=== PATIENT | male | born 1980 | race Caucasian/White ===

== ENCOUNTER 2016-09-01 10:25 | Emergency (ER) | payer OTHER ==
[~2016-09-01] VITALS: Ht 175.3 cm; Wt 108.0 kg
[2016-09-01 10:27] VITALS: TEMP 36.9; Ht 175.3 cm; Wt 108.0 kg
--- NOTE | 2016-09-01 10:55 | DIAGNOSTIC IMAGING REPORT ---
RIGHT KNEE 3 VIEWS CLINICAL HISTORY: Right knee pain after slipping on ice. COMPARISON: None FINDINGS: Alignment of the right knee is anatomic. There is no acute fracture. Joint spaces are preserved. There is a possible joint effusion. IMPRESSION: 1. No acute fracture. 2. Possible right knee joint effusion. Electronically signed by: Marshall Perez M.D. 09/01/2016 10:53 AM Dictated Date/Time: 09/01/2016 10:52 AM
--- NOTE | 2016-09-01 10:57 | DIAGNOSTIC IMAGING REPORT ---
RIGHT ANKLE MIN 3 VIEWS ROUTINE CLINICAL HISTORY: Right ankle pain following slipping on ice. COMPARISON: None FINDINGS: There is moderate lateral ankle soft tissue swelling. There is no ankle mortise widening. Note is made of a minimally displaced distal right fibular fracture that extends from the level of the ankle mortise 2.5 cm proximally. Talar dome is intact. There is an age indeterminate tiny avulsion fracture of the medial malleolus. IMPRESSION: 1. Minimally displaced distal right fibular fracture. 2. Tiny age indeterminate avulsion fracture of the medial malleolus. 3. No ankle mortise widening. Electronically signed by: Marshall Perez M.D. 09/01/2016 10:55 AM Dictated Date/Time: 09/01/2016 10:53 AM
[2016-09-01] MEDS ORDERED: KETOROLAC TROMETHAMINE 60 MG/2 ML VIAL IM STA (11:11)
[2016-09-01] MEDS ORDERED: HYDROmorphone INJ 1 MG/ML SYR IM STA (11:11)
[2016-09-01] MEDS ORDERED: ONDANSETRON 4MG OD TAB PO ONE (11:15)
[2016-09-01] MEDS ORDERED: OXYC1TAB3 PO (11:15)
[2016-09-01 12:32] VITALS: BP 140/82; PULSE 92; O2SAT 96
--- NOTE | 2016-09-01 16:17 | EMERGENCY ROOM VISIT NOTE ---
History First contact with patient: 10:36 Chief Complaint: ANKLE PAIN Stated Complaint: TWISTED RT ANKLE, SWELLING UP TO KNEE History of Present Illness The patient is a 36 year old male who presents to the Emergency Room with complaints of right leg pain after he slipped on ice and twisted his leg this morning. The patient also believes that when he fell, he fell onto his knee. He denies any head injury, back pain or other extremity injuries. He rates his discomfort a 9 out of 10. Review of Systems 10 system review was performed and was negative except for pertinent positives and negatives as indicated in history of present illness Past Medical/Surgical History Medical Problems: (1) Migraine (2) Sinusitis Family History FH: [place] (myocardial infarction) FH: cancer Hypertension Stroke Social History Smoking Status: Current Every Day Smoker Alcohol Use: none Drug Use: none Marital Status: in relationship Housing Status: lives with family Occupation Status: employed Current/Historical Medications Scheduled PRN Oxycodone Ir (Roxicodone Ir), 1-2 TAB PO Q4H PRN for Pain Allergies Coded Allergies: No Known Allergies (Verified , 02/27/16) Physical Exam Vital Signs Date Time Temp Pulse Resp B/P Pulse Ox O2 Delivery O2 Flow Rate FiO2 09/01/16 12:32 92 140/82 96 09/01/16 10:27 36.9 114 18 159/114 96 Room Air Physical Exam CONSTITUTIONAL: Healthy and well nourished. Alert and oriented X 3 with positive affect. Patient appears in moderately severe discomfort. HEENT: Normocephalic, atraumatic. Pupils equal, round and reactive. NECK: Full active range of motion without discomfort. MUSCULOSKELETAL: Examination of the right lower extremity does not show any open wounds, deformities or significant ecchymosis. The patient has notable tenderness to palpation over the distal fibula and medial malleolus. Pedal pulses are intact. Positive anterior draw, however this was difficult to test because of patient discomfort. Patient has no significant discomfort through the Achilles tendon. INTEGUMENTARY: No rash or other significant dermatologic conditions noted. NEUROLOGIC: Right foot and toes are sensory intact. Medical Decision & Procedures ER Provider Diagnostic Interpretation: My interpretation of right ankle x-rays shows a comminuted fracture of the distal fibula, along with tiny avulsion of the medial malleolus. I also question mild medial malleolar widening. Radiologist report is as follows: RIGHT ANKLE MIN 3 VIEWS ROUTINE CLINICAL HISTORY: Right ankle pain following slipping on ice. COMPARISON: None FINDINGS: There is moderate lateral ankle soft tissue swelling. There is no ankle mortise widening. Note is made of a minimally displaced distal right fibular fracture that extends from the level of the ankle mortise 2.5 cm proximally. Talar dome is intact. There is an age indeterminate tiny avulsion fracture of the medial malleolus. IMPRESSION: 1. Minimally displaced distal right fibular fracture. 2. Tiny age indeterminate avulsion fracture of the medial malleolus. 3. No ankle mortise widening. Interpretation of right knee x-ray shows a mildly effusion without evidence for any other fractures, including a proximal fibular fracture. Radiologist report is as follows: RIGHT KNEE 3 VIEWS CLINICAL HISTORY: Right knee pain after slipping on ice. COMPARISON: None FINDINGS: Alignment of the right knee is anatomic. There is no acute fracture. Joint spaces are preserved. There is a possible joint effusion. IMPRESSION: 1. No acute fracture. 2. Possible right knee joint effusion. Medications Administered Medications (Trade) Dose Ordered Sig/Piyush Route Start Time Stop Time Status Last Admin Dose Admin Hydromorphone HCl (Dilaudid Inj) 1 mg ONE STAT IM 09/01/16 11:11 09/01/16 11:13 DC 09/01/16 11:24 1 MG Ketorolac Tromethamine (Toradol Inj) 60 mg NOW STAT IM 09/01/16 11:11 09/01/16 11:13 DC 09/01/16 11:24 60 MG Ondansetron HCl (Zofran Odt) 4 mg ONE ONCE PO 09/01/16 11:15 09/01/16 11:16 DC 09/01/16 11:24 4 MG ED Course Patient history and physical exam were performed. Nurse's notes were reviewed. Vital signs were reviewed and were normal. X-rays were ordered by nursing protocol, showing a comminuted distal fibula fracture, and possible acute avulsion fracture of the medial malleolar tip. I also question mild medial mortise widening. When the patient returned from x-ray, he did request something for pain. He was administered Dilaudid 1 mg and Toradol 60 mg IM, along with Zofran 4 mg ODT. A posterior and ankle stirrup Ortho-Glass splint was applied. Neurovascular check after splint placement was normal. The patient was encouraged to ice and elevate the ankle for swelling. Ibuprofen and Tylenol in alternating fashion for baseline pain relief. The patient was provided a prescription for OxyIR as needed for breakthrough pain. No drinking or driving while taking OxyIR. The patient reports that he has been to [facility] in the past. He was instructed to contact her office for further reevaluation and management. The patient voiced understanding of all discharge instructions, was happy with plan of care, and rated his pain a 4 out of 10 on my final evaluation. Medical Decision [place] Drug Monitoring Program Search Results: patient reviewed within database, no issues identified Impression Primary Impression: Fracture of distal fibula Additional Impressions: Fall due to slipping on ice or snow Effusion, right knee Departure Information Prescriptions Oxycodone Ir (Roxicodone Ir) 5 Mg Tab 1-2 TAB PO Q4H Y for Pain, #24 TAB For Initial Treatment Prov: Raffi Vilchis PA 09/01/16 Referrals Franck Paredes M.D.([facility]) (PCP) Patient Instructions My [facility] Problem Qualifiers Primary Impression: Fracture of distal fibula Encounter type: initial encounter Fracture type: closed Fracture morphology : other fracture Laterality: right Qualified Codes: S82.831A - Other fracture of upper and lower end of right fibula, initial encounter for closed fracture Additional Impressions: Fall due to slipping on ice or snow Encounter type: initial encounter Qualified Codes: W00.9XXA - Unspecified fall due to ice and snow, initial encounter
[2016-09-07] MEDS ORDERED: OXYC1TAB3 PO (09:01)
== END 2016-09-01 12:39 | disposition home or self-care (01) ==
LOC: C.EDB 10:26
DX: S82.51XA Displaced fracture of medial malleolus of right tibia, initial encounter for closed fracture (principal); W01.0XXA Fall on same level from slipping, tripping and stumbling without subsequent striking against object, initial encounter; M25.461 Effusion, right knee; F17.200 Nicotine dependence, unspecified, uncomplicated; Z86.19 Personal history of other infectious and parasitic diseases; Z80.9 Family history of malignant neoplasm, unspecified; Z82.49 Family history of ischemic heart disease and other diseases of the circulatory system; Z82.0 Family history of epilepsy and other diseases of the nervous system

== ENCOUNTER 2016-09-04 10:40 | Emergency (ER) | payer OTHER ==
[~2016-09-04] VITALS: Ht 175.3 cm; Wt 107.9 kg
[~2016-09-04 10:40] MED LIST: OXYC1TAB3 PO
[2016-09-04 10:50] VITALS: Ht 175.3 cm; Wt 107.9 kg
[2016-09-04] MEDS ORDERED: KETOROLAC TROMETHAMINE 60 MG/2 ML VIAL IM STA (11:42)
[2016-09-04] MEDS ORDERED: ONDANSETRON 4MG OD TAB PO STA (11:42)
[2016-09-04] MEDS ORDERED: HYDROmorphone INJ 2 MG/ML SYR/VIAL IM STA (11:42)
[2016-09-04] MEDS ORDERED: OXYC1TAB3 PO (12:50)
--- NOTE | 2016-09-04 12:52 | EMERGENCY ROOM VISIT NOTE ---
ED Visit Note First contact with patient: 11:19 CHIEF COMPLAINT: Ongoing right ankle pain after a fracture last week HISTORY OF PRESENT ILLNESS: Patient is a 36-year-old white male who returns to the emergency department for right ankle pain. He was here last week after he slipped and fell, twisting the right ankle, sustaining a distal fibular fracture with mortise widening. Patient was splinted and placed on crutches. He has been using oxycodone 1-2 tablets every 4-5 hours as needed for pain. His last dose was about 3 hours prior to arrival in the emergency department. Patient reports that he tried to get into [facility] with whom he is previously established, and was told first that he could not schedule appointment without a PCP referral, then was also told that he could not schedule an appointment due to an outstanding bill. He did call his [facility] PCP and has an appointment for , the . He states this is the soonest they could get him in. At their advice, he also attempted to call [facility] who also needed a PCP referral. Patient presents complaining of ankle pain. He states that it is not controlled by the oxycodone that he is taking as prescribed. He presently rates his discomfort an 8/10. It is located in the ankle, deep and throbbing in nature. It does not radiate. There was no new injury. He is adamant that he has been on weightbearing with crutches. He denies any numbness or tingling. He denies any problems with the splint. REVIEW OF SYSTEMS: Review of systems as per HPI. All other systems reviewed were negative. At least 6 systems reviewed. PMH: Electronic medical records are reviewed and summarized as above/below. See Problem List. SOCIAL HISTORY: Patient lives at home with his significant other and children. Smoker. PHYSICAL EXAM: Vital Signs: Reviewed Nurses' notes. MENTAL STATUS: Patient is an uncomfortable appearing 36-year-old white male who is awake and alert and in moderate distress due to his ankle pain. HEART: Regular rate and rhythm. LUNGS: Clear to auscultation. EXTREMITIES: Examination of the right lower extremities show an intact short leg Ortho-Glass splint. This was removed. He has expected swelling in the ankle and in the dorsum of the foot with some ecchymosis noted. Skin is otherwise intact. No blistering or breakdown present. The calf is soft and nontender. No erythema or palpable cords. No knee joint effusion. Sensation light touch is intact of the right lower extremity. Distal pulses are easily palpable. He can wiggle and move his toes without difficulty. Capillary refill is less than 2 seconds. es or organs felt. SKIN: No pallor, cyanosis, or eruptions. EMERGENCY DEPARTMENT COURSE: The patient was seen and assessed as above. His prior ED record was reviewed, including radiographs. Splint was removed. He has expected swelling and bruising. His calf is soft and nontender. I do not suspect DVT. He was placed in a short leg Ortho-Glass splint. He was medicated with Toradol and Dilaudid IM. He does not have any new trauma to indicate new radiographs at this time. His ED visit today largely for pain management as he has had difficulty arranging orthopedic follow-up due to his insurance. I did discuss his situation with the field nurse case manager and due to his [facility] insurance, he does require a PCP referral. The patient reported that he felt more comfortable with the splint change, and with the IM medications. He was encouraged to continue all of his instructions as previously outlined, including taking the oxycodone regularly and keep the ankle up and elevated above the level of his heart. He was advised to obtain the soonest PCP appointment to obtain an orthopedic referral. He was given a refill of his oxycodone as he stated that he is nearly out. He does not demonstrate any evidence for compartment syndrome or nerve or vascular compromise. Again, I do not suspect DVT. The patient rated his discomfort a 2/10 at discharge. Problem List Medical Problems: (1) Migraine Status: Resolved (2) Sinusitis Status: Resolved Current/Historical Medications Scheduled PRN Oxycodone Ir (Roxicodone Ir), 1-2 TAB PO Q4H PRN for Pain Allergies Coded Allergies: No Known Allergies (Verified , 02/27/16) Vital Signs Date Time Temp Pulse Resp B/P Pulse Ox O2 Delivery O2 Flow Rate FiO2 09/04/16 12:55 36.7 96 18 147/114 97 09/04/16 10:50 36.7 96 18 147/114 97 Medications Administered Medications (Trade) Dose Ordered Sig/Piyush Route Start Time Stop Time Status Last Admin Dose Admin Hydromorphone HCl (Dilaudid Inj) 2 mg NOW STAT IM 09/04/16 11:42 09/04/16 11:44 DC 09/04/16 11:55 2 MG Ketorolac Tromethamine (Toradol Inj) 60 mg NOW STAT IM 09/04/16 11:42 09/04/16 11:44 DC 09/04/16 11:56 60 MG Ondansetron HCl (Zofran Odt) 4 mg NOW STAT PO 09/04/16 11:42 09/04/16 11:44 DC 09/04/16 11:56 4 MG Departure Information Impression Primary Impression: Fracture of distal fibula Prescriptions Oxycodone Ir (Roxicodone Ir) 5 Mg Tab 1-2 TAB PO Q4H Y for Pain, #30 TAB For Initial Treatment Prov: Lilli Rincon PA 09/04/16 Referrals Franck Paredes M.D.([facility]) (PCP) Curtis Hendricks M.D. Patient Instructions My [facility] Additional Instructions DO NOT drive, drink alcohol, operate machinery, or perform dangerous activities today. You were given medications in the ER that can affect your ability to safely function or operate a vehicle. Oxycodone (OxyIR) 5mg: Take 1-2 pills every four hours for breakthrough pain. Avoid alcohol, operating machinery or dangerous equipment, working on ladders or roofs, DRIVING, or situations where being under the influence may be dangerous. It is recommended to use an ydxz-yek-wodcpux stool softener such as Colace, 100mg twice daily while taking this medication to avoid constipation. Ibuprofen(Motrin, Advil) may be used for fever or pain. Use 600mg every six hours as needed. Take with food. Avoid using more than 2400mg in a 24 hour period. Do not use 2400mg per day for more than three consecutive days without physician direction. Prolonged inappropriate use can lead to stomach upset or ulcers. This medication can be taken if you need to drive, work, or perform activities which may be dangerous when taking narcotic pain medication. (AND/OR) Acetaminophen(Tylenol) may be used for fever or pain. Use 1000mg every six hours as needed. Avoid using more than 3000mg in a 24 hour period. This medication can be taken if you need to drive, work, or perform activities which may be dangerous when taking narcotic pain medication. Ice compresses for 20 minutes at a time four times daily for 2-3 days. Use the crutches as instructed. Rest and elevate your injury. Do not get the splint wet. If your splint feels excessively tight, you have worsening pain, develop numbness or tingling, or your digits appear blue, loosen the jimmy wrap. Then reapply the jimmy wrap gently without removing the splint. If your symptoms are not quickly relieved return to the ER for re- evaluation. Continue current medications. Return to the ER immediately for any numbness, tingling, severe pain, extreme swelling in the extremity or as needed. Follow-up with your PCP as you have scheduled to obtain your referral to [facility] Problem Qualifiers Primary Impression: Fracture of distal fibula
[2016-09-04 12:55] VITALS: BP 147/114; PULSE 96; TEMP 36.7; O2SAT 97
--- NOTE | 2016-09-04 16:16 | Pharmacy Progress Note ---
ED Pharmacist Progress Note Date of Service: Sep 04, 2016. Patient's fiance called stating PAC had incorrectly dated the Rx for oxycodone IR for tomorrow. Adam Rincon PAC was still here at the time this call was received. I reviewed the Rx with her, the Rx was in fact transmitted today at 12:50 with today's date. This was explained to the fiance. There is nothing that requires correction. If the Rx cannot be filled [facility] will need to provide proof that the date on the RX is incorrect.
[2016-09-07] MEDS ORDERED: OXYC1TAB3 PO (09:01)
== END 2016-09-04 12:59 | disposition home or self-care (01) ==
LOC: C.EDB 10:42 → C.EDD 12:59
DX: S82.891A Other fracture of right lower leg, initial encounter for closed fracture (principal); W01.0XXA Fall on same level from slipping, tripping and stumbling without subsequent striking against object, initial encounter; F17.200 Nicotine dependence, unspecified, uncomplicated

== ENCOUNTER 2016-09-08 12:08 | Day surgery (SDC) | payer OTHER ==
[2016-09-07 09:02] VITALS: BMI 34.0
--- NOTE | 2016-09-07 19:54 | HISTORY & PHYSICAL EXAMINATION ---
DATE OF ADMISSION: 09/08/2016 HISTORY AND PHYSICAL ADMISSION NOTE CHIEF COMPLAINT: Right distal fibular fracture. HISTORY OF PRESENT ILLNESS: Trever is a 36-year-old male with an inversion injury to his right ankle a couple days ago. He went to the Emergency Room where radiographs demonstrated a minimally displaced right distal fibular fracture. When I saw him in the office, it was a bimalleolar equivalent fracture with pain on the medial side and with minimal displacement; he elected to proceed with open reduction internal fixation. PAST MEDICAL HISTORY: Denies. PAST SURGICAL HISTORY: None. ALLERGIES: None. FAMILY HISTORY: Noncontributory. MEDICATIONS: None. SOCIAL HISTORY: The patient is single, rarely drinks. He smokes a pack a day for 22 years. He is very active. REVIEW OF SYSTEMS: The patient complains of right ankle pain. All other pertinent review of systems are negative. PHYSICAL EXAMINATION: GENERAL: He is awake, alert and oriented x3. He is in no apparent distress. He is very pleasant. HEENT: Pupils are equal, round and reactive to light. Extraocular movements intact. Oral mucosa is pink and moist. VITAL SIGNS: Regular rate per radial pulse. LUNGS: Noemí symmetrically bilaterally with no audible breath sounds. ABDOMEN: Soft, nontender, nondistended. MUSCULOSKELETAL: On physical examination of his right leg, there is a lot of swelling around the right foot and ankle. There is some ecchymosis mostly in the lateral gutter. He has a lot of tenderness to palpation laterally. He also has some tenderness over the medial deltoid. IMAGING DATA: X-rays of the right ankle do show a slightly comminuted distal fibular fracture with slight lateral translation. There is mild medial joint line widening. IMPRESSION: Bimalleolar equivalent right ankle fracture. PLAN: Will proceed with open reduction internal fixation of the distal fibula. Postoperatively, he will be placed in a trauma splint and made nonweightbearing and discharged to home with oral pain medications.
[~2016-09-08] VITALS: Ht 175.3 cm; Wt 106.8 kg
[~2016-09-08 12:08] MED LIST changes: +ACETAMINOPHEN 500 MG TAB PO SCH; +CEFAZOLIN 2000 MG/60 ML D5W 60 ML IV SCH; +FAMOTIDINE 20 MG TAB PO SCH; +GABAPENTIN 300 MG CAP PO SCH; +LACTATED RINGER'S 1000ML 1,000 ML IV SCH; +LACTATED RINGER'S 1000ML IV SCH
[2016-09-08 12:34] VITALS: BP 138/97; PULSE 78; TEMP 36.6; O2SAT 96; Ht 175.3 cm; Wt 106.8 kg
[2016-09-08] MEDS ORDERED: ROPIVACAINE 0.5% 5 MG/ML 30 ML VIAL ONE (14:19)
[2016-09-08] MEDS ORDERED: FENTANYL CITRATE INJ 50 MCG/1 ML 2 ML VIAL ONE ×4 (14:52→16:46)
[2016-09-08] MEDS ORDERED: ATROPINE SULFATE 0.1 MG/ML 5ML SYR IV PRN ×3 (15:00→17:45)
[2016-09-08] MEDS ORDERED: HYDROmorphone INJ 2 MG/ML SYR/VIAL IV PRN (15:00)
[2016-09-08] MEDS ORDERED: FENTANYL CITRATE INJ 50 MCG/1 ML 2 ML VIAL IV ONE (15:00)
[2016-09-08] MEDS ORDERED: PHENYLEPHRINE 100MCG/ML 5ML SYR IV PRN ×2 (15:00)
[2016-09-08] MEDS ORDERED: ONDANSETRON INJ 2 MG/ML 2 ML VIAL IV PRN ×4 (15:00→17:45)
[2016-09-08] MEDS ORDERED: EpHEDrine SULFATE INJ 50 MG/ML AMP IV PRN ×2 (15:00)
[2016-09-08] MEDS ORDERED: MIDAZOLAM HCL 1 MG/ML 2ML VIAL ONE (15:10)
[2016-09-08] MEDS ORDERED: LIDOCAINE HCL 2% 2 ML VIAL (20MG/ML) ONE (15:10)
[2016-09-08] MEDS ORDERED: PROPOFOL IV EMULSION 10 MG/ML 20 ML VIAL IV ONE (15:10)
--- NOTE | 2016-09-08 15:48 | History & Physical Bridge Note ---
H&P Re-Evaluation Bridge Note: I have examined the patient, reviewed the History & Physical and in the interval since the performance of the History & Physical I have noted the following changes of clinical significance: No changes noted
[2016-09-08] MEDS ORDERED: ONDANSETRON INJ 2 MG/ML 2 ML VIAL ONE (17:01)
[2016-09-08] MEDS ORDERED: ALBUTEROL HFA INHALER 8.5 GM INH ONE (17:01)
[2016-09-08] MEDS ORDERED: SUCCINYLCHOLINE 100MG/5ML SYR IV ONE (17:01)
[2016-09-08] MEDS ORDERED: HYDROmorphone INJ 2 MG/ML SYR/VIAL ONE (17:01)
[2016-09-08] MEDS ORDERED: DEXAMETHASONE SOD INJ 4 MG/ML VIAL ONE (17:01)
--- NOTE | 2016-09-08 17:21 | [facility] Post Operative Brief Note ---
Immediate Operative Summary Operative Date Sep 08, 2016. Pre-Operative Diagnosis Bimalleolar equivalent right ankle fracture. Post-Operative Diagnosis Bimalleolar equivalent right ankle fracture. Procedure(s) Performed Open reduction internal fixation of right distal fibular fracture Surgeon Dr. Baker Personnel Recruiter Surgeon(s) Victor M Biggs PA-C Estimated Blood Loss 5 cc Findings as above Specimens none per surgeon Complication(s) None Disposition Recovery Room / PACU
[2016-09-08] MEDS ORDERED: BUPIVACAINE/EPINEPHRINE 0.5% MPF 1:200,000 30 ML VIAL INJ ONE (17:22)
[2016-09-08] MEDS ORDERED: BACITRACIN 50000 UNIT VIAL IR ONE (17:22)
--- NOTE | 2016-09-08 17:31 | OPERATIVE REPORT ---
DATE OF OPERATION: 09/08/2016 PREOPERATIVE DIAGNOSIS: Bimalleolar equivalent right ankle fracture. POSTOPERATIVE DIAGNOSIS: Same. PROCEDURE: Open reduction internal fixation of the right distal fibula. SURGEON: Dr. Vitor Baker. DIETITIAN ASSISTANT: Victor M Biggs PA-C, whose assistance was necessary for positioning of the leg and helping with instrumentation. ANESTHESIA: General. COMPLICATIONS: None. CONDITION: Stable to PACU. IMPLANTS USED: I used a Synthes distal fibular locking plate. INDICATIONS FOR PROCEDURE: Trever is a 36-year-old male who fell couple days ago sustaining an inversion injury to his right ankle. X-rays showed a moderately displaced right distal fibula fracture with widening of the medial joint space. He elected to undergo operative fixation. DESCRIPTION OF PROCEDURE: On 09/08/2016, he arrived at [facility] for the above procedure. He was seen in the preoperative holding area and the operative extremity was identified and signed. He was given a preoperative antibiotic, taken back to the operating room, laid on the table in supine position and put under general anesthesia. The right ankle was then prepped and draped in sterile fashion. Time-out was done and the patient and operative extremity was properly identified. An incision was made directly over the distal fibula. Dissection was taken down through the fascia with care not to disrupt the intermediate branch of the peroneal nerve. The fracture was exposed and reduced with a reduction clamp. A 3-hole Synthes distal fibular locking plate was placed and seemed to be a good fit. Correct placement and reduction of the fracture was checked under fluoroscopy. A single compression screw was placed with a combination hole. A distal locking screw was then placed. X-ray showed anatomical alignment of the fracture and good alignment of the plate. Four additional locking screws were placed distally and 2 locking screws were placed proximally. This gave good fixation. Final x-rays including mortise view and stress view showed anatomic reduction. The wound was then irrigated and closed with 2-0 Vicryl and a 3-0 V-Loc suture and a Prineo dressing. He was then placed in a trauma splint, extubated, transferred to a [facility] and taken to the postanesthesia care unit in stable condition. He tolerated the procedure well. I attest to the content of the Intraoperative Record and any orders documented therein. Any exceptio ns are noted below.
--- NOTE | 2016-09-08 17:34 | DIAGNOSTIC IMAGING REPORT ---
RIGHT ANKLE 2 VIEWS CLINICAL HISTORY: RIGHT ANKLE ORIF Right Fluoroscopy time: 10 seconds FINDINGS: 3 fluoroscopic spot images of the right ankle. There is a lateral cortical plate transfixed with screws bridging the distal fibular fracture. The alignment is near-anatomic. The hardware appears intact. IMPRESSION: Fluoroscopy provided for open reduction and internal fixation of a right ankle fracture. Electronically signed by: Ezio Garza M.D. 09/08/2016 5:33 PM Dictated Date/Time: 09/08/2016 5:32 PM
[2016-09-08] MEDS: HYDROmorphone INJ 2 MG/ML SYR/VIAL IV PRN ×5 (17:38→17:58)
[2016-09-08] MEDS ORDERED: OXYC-57 PO (17:39)
[2016-09-08] MEDS ORDERED: KETOROLAC TROMETHAMINE 30 MG/ML VIAL ONE (17:39)
[2016-09-08] MEDS ORDERED: SODIUM CHLORIDE 0.9% 1000ML 1,000 ML IV SCH (17:41)
--- NOTE | 2016-09-08 17:41 | Discharge Instructions ---
Discharge Instructions Admission Reason for Admission: Right Closed Fracture Of Lateral Malleolus Discharge Discharge Diagnosis / Problem: SAME ABOVE Discharge Goals Goal(s): Decrease discomfort, Improve function Activity Recommendations Activity Limitations: as noted below Lifting Limitations: until after follow-up appointment Exercise/Sports Limitations: until after follow-up appointment Driving or Machine Use: NO DRIVING UNTIL FOLLOW-UP . Instructions / Follow-Up Instructions / Follow-Up MEDICATIONS: * Resume previous medications unless instructed otherwise by your surgeon. * Always take pain medication on a full stomach or with food to avoid upset stomach. * Do not drink alcohol or drive while taking narcotics. * Ibuprofen or Tylenol may be taken if narcotic not needed. SPECIAL CARE INSTRUCTIONS: __ None _X_ Keep extremity elevated and iced x 48 hours; apply ice 20-30 minutes 8-10 times/day. May remove at night. _X_ Crutches _X_ May discard when able __ Brace/Post-op shoe __ 24 hrs/day __ Remove at night _X_ Dressing _X_ Maintain until seen in office, may shower with plastic over site __ Remove dressings in 24-48 hours and then may shower __ Cover incisions with band-aids after showering __ Do not remove steri-strips Call physician if chills or temperature rises above 102 degrees or pain unrelieved by prescribed pain medications. Office [phone] Current Hospital Diet Patient's current hospital diet: Discharge Diet Recommended Diet: Regular Diet Fluid Restriction: None Procedures Procedures Performed: Open reduction internal fixation of right distal fibular fracture Pending Studies Studies pending at discharge: no Work Instructions Return To Work: after follow-up Medical Emergencies . Who to Call and When: Medical Emergencies: If at any time you feel your situation is an emergency, please call 911 immediately. . Non-Emergent Contact Non-Emergency issues call your: Primary Care Provider Call Non-Emergent contact if: you have a fever, temperature is above 101.5 . "Provider Documentation" section prepared by Ken Biggs. VTE Core Measure Inpt VTE Proph given/why not?: Treatment not indicated
[2016-09-08] MEDS ORDERED: LABETALOL HCL IV 5 MG/ML 20ML IV PRN (17:45)
[2016-09-08] MEDS ORDERED: KETOROLAC TROMETHAMINE 30 MG/ML VIAL IV. PRN (17:45)
[2016-09-08] MEDS ORDERED: OXYCODONE/ACETAMINOPHEN 5-325 TAB PO PRN ×2 (17:45)
[2016-09-08] MEDS ORDERED: MEPERIDINE HCL 25 MG/ML CARP IV PRN (17:45)
[2016-09-08] MEDS ORDERED: LABETALOL HCL IV 5 MG/ML 20ML ONE (18:05)
[2016-09-08] MEDS ORDERED: HydrALAZINE HCL 20 MG/ML VIAL ONE (18:16)
[2016-09-08] MEDS ORDERED: HydrALAZINE HCL 20 MG/ML VIAL IV. PRN (18:30)
[2016-09-08 18:40] VITALS: BP 145/94; PULSE 68; TEMP 36.7; O2SAT 97
--- NOTE | 2016-09-08 18:57 | Anesthesiology Progress Note ---
Anesthesia Post Op Note Date & Time Sep 08, 2016 at 18:57 Vital Signs Vital Signs Past 12 Hours Date Time Temp Pulse Resp B/P Pulse Ox O2 Delivery O2 Flow Rate FiO2 09/08/16 18:35 36.2 70 16 161/116 98 Nasal Cannula 2 09/08/16 18:25 73 12 160/115 99 Nasal Cannula 2 09/08/16 18:15 70 20 163/117 99 Nasal Cannula 2 09/08/16 18:05 77 19 188/118 93 Nasal Cannula 2 09/08/16 17:55 82 18 158/114 100 Nasal Cannula 2 09/08/16 17:45 94 28 168/134 97 Mask 10 09/08/16 17:36 36.2 101 28 137/119 97 Mask 10 09/08/16 12:34 36.6 78 18 138/97 96 Room Air Notes Mental Status: alert / awake / arousable, participated in evaluation Pt Amnestic to Procedure: Yes Nausea / Vomiting: adequately controlled Pain: adequately controlled Airway Patency, RR, SpO2: stable & adequate BP & HR: stable & adequate Hydration State: stable & adequate Anesthetic Complications: no major complications apparent
[2016-09-08 19:08] VITALS: BP 161/110; PULSE 70; O2SAT 96
--- NOTE | 2016-09-08 19:09 | Anesthesiology Progress Note ---
Anesthesia Progress Note Date of Service Sep 08, 2016. Progress Notes Called to see patient in SDS due to facial petechiae. Patient did do a lot of coughing in PACU and he says this happens to him when he coughs a lot or even throws up. Blood pressure better now, he says it is up and down at home and I told him he should let his doctor know so they can monitor him for the need for antihypertensives. Otherwise he looks and feels well.
[2016-09-08 19:36] VITALS: BP 160/98; PULSE 92; TEMP 36.7; O2SAT 98
== END 2016-09-08 19:40 | disposition home or self-care (01) ==
LOC: C.ACU 12:08
PROVIDERS: ATTEND Orthopaedic Surgery
DX: S82.891A Other fracture of right lower leg, initial encounter for closed fracture (principal); W01.0XXA Fall on same level from slipping, tripping and stumbling without subsequent striking against object, initial encounter; Y92.89 Other specified places as the place of occurrence of the external cause; F17.210 Nicotine dependence, cigarettes, uncomplicated

== ENCOUNTER 2016-10-16 11:41 | Emergency (ER) | payer OTHER ==
[~2016-10-16] VITALS: Ht 175.3 cm; Wt 110.5 kg
[~2016-10-16 11:41] MED LIST changes: -ACETAMINOPHEN 500 MG TAB PO SCH; -CEFAZOLIN 2000 MG/60 ML D5W 60 ML IV SCH; -FAMOTIDINE 20 MG TAB PO SCH; -GABAPENTIN 300 MG CAP PO SCH; -LACTATED RINGER'S 1000ML 1,000 ML IV SCH; -LACTATED RINGER'S 1000ML IV SCH; +OXYC-57 PO
[2016-10-16 11:42] VITALS: TEMP 36.9; Ht 175.3 cm; Wt 110.5 kg
[2016-10-16] MEDS ORDERED: NEOMYCIN/POLYMYX/HYDROCORT OT SUSP 10 ML BTL ONE (11:58)
[2016-10-16] MEDS ORDERED: HYDR-5688 PO (12:17)
[2016-10-16 12:34] VITALS: BP 150/79; PULSE 95; O2SAT 96
--- NOTE | 2016-10-17 17:39 | EMERGENCY ROOM VISIT NOTE ---
ED Visit Note First contact with patient: 11:46 Chief Complaint: Right ear pain. History of Present Illness: Mr. Kim is a 36-year-old white male who ambulates into the ED complaining of right ear pain and swelling. Patient reports he was feeling well when he went to sleep last night. He reports shortly after waking he noticed pain and swelling of the right ear canal. Since that time the pain has been constant and slowly increasing in intensity. He describes his discomfort as a throbbing sensation. He rates his discomfort 10/10. The pain is radiating down into the lateral aspect of the neck. His pain worsens with palpation of the external ear. He has not identified any alleviating factors related to the pain. Associated with the pain he reports is mild decrease in hearing in the right ear and he has been having chills. Additionally he does report he normally cleans his ear canals with Q-tips and the last time he did this was a few days ago. He denies christopher fevers, skin eruptions, skin color changes, headache, dizziness , lightheadedness, recent trauma to the year, neck pain/stiffness, sore throat, voice changes, difficulty swallowing, cough, wheezing, shortness of breath, abdominal pain, nausea/vomiting. Additionally he denies any previous significant ear diseases or surgeries. Review of Systems: As noted above in history of present illness. 8 body systems were reviewed and found to be negative as noted above. Past Medical History: Migraine headaches, sinus disease, surgical repair of a right fibula fracture. Current Medications: Patient denies. Allergies to Medications: Patient denies. Social History: Patient is currently employed; his with his girlfriend and feels safe in his home environment; he admits to tobacco use and denies alcohol use. Physical Examination: Vital Signs: Date Time Temp Pulse Resp B/P Pulse Ox O2 Delivery O2 Flow Rate FiO2 10/16/16 12:34 95 16 150/79 96 10/16/16 11:42 36.9 104 18 161/105 94 Room Air GENERAL: 36-year-old male in moderate distress due to pain, nontoxic-appearing, afebrile and hemodynamically stable. NEUROLOGICAL: Awake, alert and oriented to person, place and time. Answering questions appropriately and following commands. Normal gait. Good hand eye coordination. No focal motor sensory deficits. SKIN: Warm, dry and pink. HEENT: Atraumatic and normocephalic. Right external ear is tender to palpation with positive tragal tenderness. Right auditory canal is moderately erythematous and moderately edematous. I was not able to visualize the tympanic membrane due to the swelling. Left ear is unremarkable. There is no local preauricular or postauricular lymphadenopathy. No erythema or tenderness over the mastoid process. Pharynx is nonerythematous or edematous. Airway patent. Speech normal. ED Course: Patient is assessed as noted above. Neurologic was placed in the right ear canal and then saturated with 5 drops of Cortisporin Otic suspension. Patient was educated about tonight's findings and instructed on his treatment plan; he verbalizes understanding and agreement with this plan. Clinical Impression: Acute right otitis externa. Disposition: Patient discharged home in stable condition; prior to departure he was reassessed and subjectively reported he was feeling better and rated his discomfort 7/10. Plan: Patient was placed in a sliding pain scale of ibuprofen, acetaminophen and [place] ; he was given precautions about narcotic use. Patient was prescribed Cortisporin otic suspension encouraged to put 4 drops in his right ear canal 4 times a day for 5-7 days. Patient was encouraged to remove ear wick 48 hours. I Patient was encouraged to follow-up with family physician for recheck in 5-7 days. Patient was encouraged return ED for external ear redness/swelling, hearing changes, uncontrolled fevers or any new/concerning symptoms.
== END 2016-10-16 12:35 | disposition home or self-care (01) ==
LOC: C.EDB 11:42 → C.EDD 12:35
DX: H60.91 Unspecified otitis externa, right ear (principal)

== ENCOUNTER 2016-10-26 18:49 | Emergency (ER) | payer OTHER ==
[~2016-10-26] VITALS: Ht 175.3 cm; Wt 110.9 kg
[~2016-10-26 18:49] MED LIST changes: +ENOXAPARIN 120 MG/0.8 ML SYR SQ SCH; +HYDR-5688 PO; -OXYC-57 PO; -OXYC1TAB3 PO
[2016-10-26 18:53] VITALS: TEMP 36.9; Ht 175.3 cm; Wt 110.9 kg
[2016-10-26] MEDS ORDERED: OXYCODONE HCL IR 5 MG TAB (IMMEDIATE RELEASE) PO STA (19:02)
[2016-10-26 19:15] LABS: BASO % 0.4 %; BASO ABS # 0.04 K/uL (0-0.2); COMPLETE YES; EOS % 2.8 %; HEMATOCRIT 45.7 % (42-52); IG% 0.2 %; LYMPH % 27.2 %; LYMPH ABS # 2.43 K/uL (1.2-3.4); MEAN CELL VOLUME 91.6 fL (80-100); MEAN CORPUSCULAR HEMOGLOBIN 32.9 pg (25-34); MEAN CORPUSCULAR HGB CONC 35.9 g/dl (32-36); MONO % 10.8 %; NEUT % 58.6 %; PLATELET COUNT 238 K/uL (130-400); RED BLOOD COUNT 4.99 M/uL (4.7-6.1); WHITE BLOOD COUNT 8.95 K/uL (4.8-10.8)
--- NOTE | 2016-10-26 19:35 | DIAGNOSTIC IMAGING REPORT ---
RIGHT ANKLE 3 VIEWS HISTORY: R ankle/leg pain Right COMPARISON: Right ankle 09/01/2016. FINDINGS: Interval placement of a lateral cortical plate with screws bridging the distal fibular fracture. There is faint visualization of the oblique distal fibular fracture consistent with interval healing. The alignment is anatomic. The hardware appears intact. Diffuse soft tissue swelling. No dislocation. IMPRESSION: 1. Internal fixation of a distal right fibular fracture. The hardware appears intact. There is been interval healing of the fibular fracture. 2. No acute fracture or dislocation within the right ankle. 3. Persistent diffuse soft tissue swelling. Electronically signed by: Ezio Garza M.D. 10/26/2016 7:34 PM Dictated Date/Time: 10/26/2016 7:32 PM
[2016-10-26 19:43] LABS: BUN/CREATININE RATIO 10.4 (10-20); C-REACTIVE PROTEIN 0.83 mg/dl (0-0.29); CALCIUM 8.6 mg/dl (8.5-10.1); CREATININE 0.96 mg/dl (0.60-1.40); POTASSIUM 3.9 mmol/L (3.5-5.1); URIC ACID 7.4 mg/dl (2.6-7.2)
[2016-10-26] MEDS ORDERED: MoRPHine SULFATE 10 MG/ML CARP/VIAL IV STA (19:59)
[2016-10-26] MEDS ORDERED: KETOROLAC TROMETHAMINE 30 MG/ML VIAL IV STA (19:59)
--- NOTE | 2016-10-26 20:34 | DIAGNOSTIC IMAGING REPORT ---
RIGHT LOWER EXTREMITY VENOUS DOPPLER HISTORY: Right ankle/leg pain - eval possible DVT Right COMPARISON STUDY: None. FINDINGS: Thrombosed one of 2 right peroneal veins. The remaining right lower extremity deep venous structures are patent. IMPRESSION: Occlusive deep vein thrombosis involving one of 2 right peroneal veins. Electronically signed by: Ezio Garza M.D. 10/26/2016 8:33 PM Dictated Date/Time: 10/26/2016 8:32 PM
[2016-10-26] MEDS ORDERED: WARFARIN SOD 5 MG TAB PO ONE (20:45)
[2016-10-26] MEDS ORDERED: ENOXAPARIN 120 MG/0.8 ML SYR SQ ONE (20:45)
[2016-10-26] MEDS ORDERED: ENOX120I SQ (21:00)
[2016-10-26] MEDS ORDERED: OXYC1TAB3 PO (21:00)
[2016-10-26] MEDS ORDERED: ENOXAPARIN 100 MG/1ML SYR SQ ONE (21:00)
[2016-10-26] MEDS ORDERED: WARF5TAB90 PO (21:00)
[2016-10-26] MEDS ORDERED: IBUP-1050 PO (21:12)
[2016-10-26] MEDS ORDERED: OXYCODONE IR HOME PACK PO ONE (21:15)
--- NOTE | 2016-10-26 21:18 | EMERGENCY ROOM VISIT NOTE ---
History First contact with patient: 18:56 Chief Complaint: ANKLE PAIN Stated Complaint: RT ANKLE SWOLLEN , PAINS GOING UP LEG History of Present Illness The patient is a 36 year old male who presents to the Emergency Room with complaints of progressively worsening right ankle pain, swelling, redness and pain extending into the leg. The patient reports undergoing right ankle surgery approximately 6 weeks ago. His surgery was performed by Dr. Baker. He had his cast removed last Sunday, and was instructed to increase weightbearing as tolerated. The patient denies any significant strenuous activities since his cast removal. He now reports a cramping sensation in his calf. Weightbearing worsens his pain to an 8 out of 10. The patient denies any prior history of gout or skin infections. Review of Systems HEENT: Denies dizziness, visual problems, hearing loss, tinnitus. Denies difficulty swallowing or oral lesions. PULMONARY: Denies cough, shortness of breath, sputum production or hemoptysis. CARDIOVASCULAR: Denies chest pain, palpitations, dyspnea on exertion, orthopnea or peripheral edema. GASTROINTESTINAL: Denies diarrhea, constipation, nausea, vomiting, or abdominal pain. GENITOURINARY: Denies dysuria, frequency, urgency or nocturia. NEUROLOGIC: Denies history of epilepsy, CVA, TIA or chronic headaches. MUSCULOSKELETAL: Denies history of joint tenderness/swelling. SKIN: Denies rashes or lesions. PSYCHIATRIC: Denies history of depression or mental illness. ENDOCRINE: Denies history of diabetes or thyroid disorders. Past Medical/Surgical History Medical Problems: (1) Migraine (2) Sinusitis Surgical Problems: (1) No history of previous surgery Family History FH: [place] (myocardial infarction) FH: cancer Hypertension Stroke Social History Smoking Status: Current Every Day Smoker Alcohol Use: none Drug Use: none Marital Status: in relationship Housing Status: lives with family Occupation Status: employed Current/Historical Medications Scheduled Enoxaparin (Lovenox), 111 MG SQ Q12H Warfarin Sodium (Coumadin), 5 MG PO DAILY Scheduled PRN Hydrocodone/Acetaminophen 5MG/325MG ([place] 5MG/325MG), 1-2 TABLET PO Q6H PRN for Pain Oxycodone Ir (Roxicodone Ir), 1-2 TAB PO Q4H PRN for Pain Allergies Coded Allergies: No Known Allergies (Verified , 10/16/16) Physical Exam Vital Signs Date Time Temp Pulse Resp B/P Pulse Ox O2 Delivery O2 Flow Rate FiO2 10/26/16 18:53 36.9 90 18 170/112 96 Room Air Physical Exam CONSTITUTIONAL: Healthy and well nourished. Alert and oriented X 3 with positive affect. Patient appears in mild to moderate discomfort from pain. HEENT: Normocephalic, atraumatic. Pupils equal, round and reactive. NECK: Full active range of motion without discomfort. RESPIRATORY: Clear to auscultation bilaterally with no wheezing, crackles, rhonchi or stridor. CARDIOVASCULAR: Regular rate and rhythm with no murmurs, rubs or gallops. MUSCULOSKELETAL: Examination of the right lower extremity shows well healed surgical incisions. The patient does have some mild overriding erythema about the ankle, along with edema. He is tender about the entire ankle, Achilles tendon and gastrocnemius. The muscle is soft to palpation. No popliteal masses. Pedal pulses are intact. LYMPHATICS: No lymphangitic streaking of the right lower extremity. INTEGUMENTARY: No rash or other significant dermatologic conditions noted. NEUROLOGIC: No focal neurologic deficits noted. Right foot and toes are sensory intact. Medical Decision & Procedures ER Provider Diagnostic Interpretation: My interpretation of right ankle x-rays does not show any acute fractures or other acute bony/hardware changes. Venous ultrasound of the right lower extremity shows a peroneal DVT. Radiologist report is as follows: RIGHT LOWER EXTREMITY VENOUS DOPPLER HISTORY: Right ankle/leg pain - eval possible DVT Right COMPARISON STUDY: None. FINDINGS: Thrombosed one of 2 right peroneal veins. The remaining right lower extremity deep venous structures are patent. IMPRESSION: Occlusive deep vein thrombosis involving one of 2 right peroneal veins. Laboratory Results 10/26/16 19:10 Red Blood Count 4.99, Mean Corpuscular Volume 91.6, Mean Corpuscular Hemoglobin 32.9, Mean Corpuscular Hemoglobin Concent 35.9, Mean Platelet Volume 10.0, Neutrophils (%) (Auto) 58.6, Lymphocytes (%) (Auto) 27.2, Monocytes (%) (Auto) 10.8, Eosinophils (%) (Auto) 2.8, Basophils (%) (Auto) 0.4, Neutrophils # (Auto ) 5.24, Lymphocytes # (Auto) 2.43, Monocytes # (Auto) 0.97, Eosinophils # (Auto ) 0.25, Basophils # (Auto) 0.04 10/26/16 19:10 Test 10/26/16 19:10 10/26/16 20:38 White Blood Count 8.95 K/uL (4.8-10.8) Red Blood Count 4.99 M/uL (4.7-6.1) Hemoglobin 16.4 g/dL (14.0-18.0) Hematocrit 45.7 % (42-52) Mean Corpuscular Volume 91.6 fL (80-100) Mean Corpuscular Hemoglobin 32.9 pg (25-34) Mean Corpuscular Hemoglobin Concent 35.9 g/dl (32-36) Platelet Count 238 K/uL (130-400) Mean Platelet Volume 10.0 fL (7.4-10.4) Neutrophils (%) (Auto) 58.6 % Lymphocytes (%) (Auto) 27.2 % Monocytes (%) (Auto) 10.8 % Eosinophils (%) (Auto) 2.8 % Basophils (%) (Auto) 0.4 % Neutrophils # (Auto) 5.24 K/uL (1.4-6.5) Lymphocytes # (Auto) 2.43 K/uL (1.2-3.4) Monocytes # (Auto) 0.97 K/uL (0.11-0.59) Eosinophils # (Auto) 0.25 K/uL (0-0.5) Basophils # (Auto) 0.04 K/uL (0-0.2) RDW Standard Deviation 44.8 fL (36.4-46.3) RDW Coefficient of Variation 13.5 % (11.5-14.5) Immature Granulocyte % (Auto) 0.2 % Immature Granulocyte # (Auto) 0.02 K/uL (0.00-0.02) Erythrocyte Sedimentation Rate 14 mm/hr (0-14) Anion Gap 6.0 mmol/L (3-11) Est Creatinine Clear Calc Drug Dose 129.3 ml/min Estimated GFR () 116.6 Estimated GFR (Non- 100.6 BUN/Creatinine Ratio 10.4 (10-20) Uric Acid 7.4 mg/dl (2.6-7.2) Calcium Level 8.6 mg/dl (8.5-10.1) C-Reactive Protein 0.83 mg/dl (0-0.29) The above labs were reviewed. Medications Administered Medications (Trade) Dose Ordered Sig/Piyush Route Start Time Stop Time Status Last Admin Dose Admin Oxycodone HCl (Roxicodone Immediate Rel Tab) 5 mg NOW STAT PO 10/26/16 19:02 10/26/16 19:06 DC 10/26/16 19:02 5 MG Morphine Sulfate (MoRPHine SULFATE INJ) 8 mg NOW STAT IV 10/26/16 19:59 10/26/16 20:00 DC 10/26/16 20:08 8 MG Ketorolac Tromethamine (Toradol Inj) 30 mg NOW STAT IV 10/26/16 19:59 10/26/16 20:00 DC 10/26/16 20:08 30 MG ED Course Patient history and physical exam were performed. Nurse's notes were reviewed. Vital signs were reviewed. The patient is afebrile. His blood pressure is elevated at 170/112. The patient was administered OxyIR 5 mg for pain. IV access was established, and labs were drawn. Review of labs shows an elevated CRP and mildly elevated uric acid. White count, sedimentation rate and electrolytes are otherwise normal. X-rays of the right ankle were normal. Venous ultrasound of the right lower extremity was ordered. After the patient returned from ultrasound, he reported worsening pain and was administered morphine 8 mg and Toradol 30 mg IVP. Venous ultrasound of the right lower extremity confirms an occlusive peroneal DVT. Additional labs, including PT/INR , PTT and LFTs were ordered and were pending at the time of patient discharge. Patient was administered Coumadin 10 mg orally and Lovenox 111 mg subcutaneous. A Lovenox teaching kit was used for education by the patient's nurse. The patient was also dispensed an additional Lovenox 120 mg injector for his 9 AM dosing. He received a home pack for OxyIR, and prescriptions for Lovenox, Coumadin and OxyIR. He was instructed to refrain from any NSAIDs or aspirin use in the future. General instructions for caution with injuries, including head injuries, were also discussed with the patient. The patient will call his family doctor's office in the morning to arrange further outpatient Coumadin management. Impression Primary Impression: Deep venous thrombosis (DVT) of right peroneal vein Additional Impression: Status post right ankle bimalleolar fracture with ORIF Departure Information Prescriptions Oxycodone Ir (Roxicodone Ir) 5 Mg Tab 1-2 TAB PO Q4H Y for Pain, #24 TAB For Initial Treatment Prov: Raffi Vilchis PA 10/26/16 Enoxaparin (Lovenox) 120 Mg/0.8 Ml Inj 111 MG SQ Q12H, #10 SYR Prov: Raffi Vilchis PA 10/26/16 Warfarin Sodium (COUMADIN) 5 Mg Tab 5 MG PO DAILY for 7 Days, #7 TAB Prov: Raffi Vilchis PA 10/26/16 Referrals Alex Dumas M.D. (MEDICAL) (PCP) Patient Instructions My [facility] Problem Qualifiers
[2016-10-26 21:33] VITALS: BP 130/71; PULSE 77; O2SAT 99
[2016-10-26 21:44] LABS: PARTIAL THROMBOPLASTIN RATIO 1.1; PROTHROMBIN TIME (PATIENT) 10.9 SECONDS (9.0-12.0)
== END 2016-10-26 21:33 | disposition home or self-care (01) ==
LOC: C.EDB 18:50 → C.EDD 21:33
DX: I82.4Z1 Acute embolism and thrombosis of unspecified deep veins of right distal lower extremity (principal); F17.200 Nicotine dependence, unspecified, uncomplicated; Z87.81 Personal history of (healed) traumatic fracture; Z86.19 Personal history of other infectious and parasitic diseases; Z98.890 Other specified postprocedural states; Z79.01 Long term (current) use of anticoagulants; Z79.899 Other long term (current) drug therapy; Z82.49 Family history of ischemic heart disease and other diseases of the circulatory system; Z80.9 Family history of malignant neoplasm, unspecified; Z82.3 Family history of stroke

== ENCOUNTER 2017-04-29 20:21 | Emergency (ER) | payer OTHER ==
[~2017-04-29] VITALS: Ht 175.3 cm; Wt 111.4 kg
[~2017-04-29 20:21] MED LIST changes: -ENOXAPARIN 120 MG/0.8 ML SYR SQ SCH; -HYDR-5688 PO; +IBUP-1050 PO
[2017-04-29 20:31] VITALS: TEMP 36.7; Ht 175.3 cm; Wt 111.4 kg
[2017-04-29] MEDS ORDERED: MoRPHine SULFATE 10 MG/ML CARP/VIAL IV STA (21:10)
[2017-04-29] MEDS ORDERED: ONDANSETRON INJ 2 MG/ML 2 ML VIAL IV STA (21:10)
[2017-04-29] MEDS ORDERED: WARF10TA4 PO (21:18)
[2017-04-29] MEDS ORDERED: GABA1CAP4 PO (21:18)
[2017-04-29] MEDS ORDERED: LOSA100T65 PO (21:18)
[2017-04-29] MEDS ORDERED: OXYC-609 PO (21:18)
[2017-04-29] MEDS ORDERED: WARF-246 PO (21:18)
[2017-04-29 21:51] LABS: BASO % 0.6 %; BASO ABS # 0.05 K/uL (0-0.2); COMPLETE YES; HEMATOCRIT 42.7 % (42-52); IG% 0.1 %; LYMPH ABS # 2.55 K/uL (1.2-3.4); MEAN CELL VOLUME 91.2 fL (80-100); MEAN CORPUSCULAR HEMOGLOBIN 32.7 pg (25-34); MEAN CORPUSCULAR HGB CONC 35.8 g/dl (32-36); MEAN PLATELET VOLUME 10.2 fL (7.4-10.4); NEUT % 53.3 %; PLATELET COUNT 200 K/uL (130-400); RED BLOOD COUNT 4.68 M/uL (4.7-6.1); WHITE BLOOD COUNT 8.23 K/uL (4.8-10.8)
[2017-04-29 22:05] LABS: INR 2.2 (0.9-1.1); PROTHROMBIN TIME (PATIENT) 24.1 SECONDS (9.0-12.0)
--- NOTE | 2017-04-29 22:32 | DIAGNOSTIC IMAGING REPORT ---
RIGHT RIBS UNILATERAL WITH PA CHEST CLINICAL HISTORY: 37 years-old Male presenting with right lower anterior rib pain, shortness of breath, injured on [place] now with worsening pain. TECHNIQUE: PA view of the chest and frontal and lateral views of the right ribs were obtained. COMPARISON: Chest x-ray from 2013. FINDINGS: Cardiomediastinal silhouette normal. Lungs and pleural spaces clear. No displaced rib fracture. Upper abdomen normal. IMPRESSION: 1. No displaced rib fracture. 2. No acute cardiopulmonary disease. Electronically signed by: Trever Morton M.D. 04/29/2017 10:30 PM Dictated Date/Time: 04/29/2017 10:28 PM
[2017-04-29] MEDS ORDERED: MoRPHine SULFATE 4 MG/ML 1 ML CARP\\VIAL IV STA (22:43)
[2017-04-29 23:23] VITALS: BP 145/106; PULSE 77; O2SAT 95
--- NOTE | 2017-04-30 01:52 | EMERGENCY ROOM VISIT NOTE ---
History Report prepared by Misty: Peggy Newberry Under the Supervision of: Jake RichardsonO. First contact with patient: 20:51 Chief Complaint: RIB PAIN Stated Complaint: R SIDE PAIN,SOB History of Present Illness The patient is a 37 year old male who presents to the Emergency Room with complaints of worsening right-sided rib pain for the past 6 days. The patient was at work 6 days ago and moved an extension ladder, which is when he initially experienced the pain. He states that it has worsened since then. He rates his current pain as an 8/10 in severity. He is unable to lay on his right side due to the pain. Movement, coughing, and deep inspiration exacerbate his pain. Pt denies headache, change in vision, fevers, chest pain, shortness of breath, nausea, vomiting, diarrhea, pain with urination, and melena. He denies any injury or trauma to the area. The patient is on blood thinners for a previous DVT. His INR on 04/24 was 2.9. Source of History: patient Onset: 6 days ago Position: other (right ribs) Symptom Intensity: 8/10 Timing: worsening Modifying Factors (Worsening): breathing, movement, other (coughing) Modifying Factors (Relieving): rest Associated Symptoms: No fevers, No headache, No chest pain, No SOB, No nausea, No vomiting, No diarrhea, No urinary symptoms Review of Systems See HPI for pertinent positives & negatives. A total of 10 systems reviewed and were otherwise negative. Past Medical & Surgical Medical Problems: (1) Migraine (2) Sinusitis Surgical Problems: (1) No history of previous surgery Family History FH: [place] (myocardial infarction) FH: cancer Hypertension Stroke Social History Smoking Status: Current Every Day Smoker Alcohol Use: none Drug Use: none Marital Status: in relationship Housing Status: lives with family Occupation Status: employed Current/Historical Medications Scheduled Gabapentin (Gabapentin), 300 MG PO TID Losartan Potassium (Cozaar), 100 MG PO QAM Warfarin Sod (Jantoven), 15 MG PO SUNDAY Warfarin Sodium (Warfarin Sodium), 10 MG PO [id number] Scheduled PRN Oxycodone HCl (Oxycodone HCl), 5 MG PO TID PRN for Pain Allergies Coded Allergies: No Known Allergies (Verified , 04/29/17) Physical Exam Vital Signs Date Time Temp Pulse Resp B/P (MAP) Pulse Ox O2 Delivery O2 Flow Rate FiO2 04/29/17 23:23 77 16 145/106 95 04/29/17 22:40 78 20 162/104 94 Room Air 04/29/17 21:40 84 21 162/111 96 Room Air 04/29/17 20:31 36.7 87 20 156/104 97 Room Air Physical Exam GENERAL: alert, sitting up in bed, holding right chest, well appearing, well nourished, mild distress, non-toxic EYE EXAM: normal conjunctiva, PERRL and EOM's grossly intact OROPHARYNX: no exudate, no erythema, lips, buccal mucosa, and tongue normal and mucous membranes are moist NECK: supple, no nuchal rigidity, no adenopathy, non-tender LUNGS: Clear to auscultation. Normal chest wall mechanics HEART: no murmurs, S1 normal and S2 normal CHEST: Acute reproducible tenderness in the right axilla tracking under the right mid-sternum. ABDOMEN: abdomen soft, non-tender, normo-active bowel sounds, no masses, no rebound or guarding. BACK: Back is symmetrical on inspection and there is no deformity, no midline tenderness, no CVA tenderness. SKIN: no rashes and no bruising UPPER EXTREMITIES: upper extremities are grossly normal. LOWER EXTREMITIES: No pitting edema. NEURO EXAM: Normal sensorium, cranial nerves II-XII grossly intact, normal speech, no gross weakness of arms, no gross weakness of legs. Medical Decision & Procedures ER Provider Diagnostic Interpretation: Radiology results as stated below per my review and the radiologist's interpretation: RIGHT RIBS UNILATERAL WITH PA CHEST CLINICAL HISTORY: 37 years-old Male presenting with right lower anterior rib pain, shortness of breath, injured on Sunday now with worsening pain. TECHNIQUE: PA view of the chest and frontal and lateral views of the right ribs were obtained. COMPARISON: Chest x-ray from 2013. FINDINGS: Cardiomediastinal silhouette normal. Lungs and pleural spaces clear. No displaced rib fracture. Upper abdomen normal. IMPRESSION: 1. No displaced rib fracture. 2. No acute cardiopulmonary disease. Electronically signed by: Trever Morton M.D. 04/29/2017 10:30 PM Dictated Date/Time: 04/29/2017 10:28 PM Laboratory Results 04/29/17 21:40 Red Blood Count 4.68, Mean Corpuscular Volume 91.2, Mean Corpuscular Hemoglobin 32.7, Mean Corpuscular Hemoglobin Concent 35.8, Mean Platelet Volume 10.2, Neutrophils (%) (Auto) 53.3, Lymphocytes (%) (Auto) 31.0, Monocytes (%) (Auto) 9.0, Eosinophils (%) (Auto) 6.0, Basophils (%) (Auto) 0.6, Neutrophils # (Auto) 4.39, Lymphocytes # (Auto) 2.55, Monocytes # (Auto) 0.74, Eosinophils # (Auto) 0.49, Basophils # (Auto) 0.05 Test 04/29/17 21:40 White Blood Count 8.23 K/uL (4.8-10.8) Red Blood Count 4.68 M/uL (4.7-6.1) Hemoglobin 15.3 g/dL (14.0-18.0) Hematocrit 42.7 % (42-52) Mean Corpuscular Volume 91.2 fL (80-100) Mean Corpuscular Hemoglobin 32.7 pg (25-34) Mean Corpuscular Hemoglobin Concent 35.8 g/dl (32-36) Platelet Count 200 K/uL (130-400) Mean Platelet Volume 10.2 fL (7.4-10.4) Neutrophils (%) (Auto) 53.3 % Lymphocytes (%) (Auto) 31.0 % Monocytes (%) (Auto) 9.0 % Eosinophils (%) (Auto) 6.0 % Basophils (%) (Auto) 0.6 % Neutrophils # (Auto) 4.39 K/uL (1.4-6.5) Lymphocytes # (Auto) 2.55 K/uL (1.2-3.4) Monocytes # (Auto) 0.74 K/uL (0.11-0.59) Eosinophils # (Auto) 0.49 K/uL (0-0.5) Basophils # (Auto) 0.05 K/uL (0-0.2) RDW Standard Deviation 46.8 fL (36.4-46.3) RDW Coefficient of Variation 14.0 % (11.5-14.5) Immature Granulocyte % (Auto) 0.1 % Immature Granulocyte # (Auto) 0.01 K/uL (0.00-0.02) Prothrombin Time 24.1 SECONDS (9.0-12.0) Prothromb Time International Ratio 2.2 (0.9-1.1) Laboratory results per my review. Medications Administered Medications (Trade) Dose Ordered Sig/Piyush Route Start Time Stop Time Status Last Admin Dose Admin Ondansetron HCl (Zofran Inj) 4 mg NOW STAT IV 04/29/17 21:10 04/29/17 21:11 DC 04/29/17 21:42 4 MG Morphine Sulfate (MoRPHine SULFATE INJ) 6 mg NOW STAT IV 04/29/17 21:10 04/29/17 21:11 DC 04/29/17 21:42 6 MG Morphine Sulfate (MoRPHine SULFATE INJ) 4 mg NOW STAT IV 04/29/17 22:43 04/29/17 22:44 DC 04/29/17 22:59 4 MG ED Course ED COURSE: Vital signs were reviewed and showed hypertensive. The patients medical record was reviewed The above diagnostic studies were performed and reviewed. ED treatments and interventions as stated above. 2050: The patient was evaluated in room C2B. A complete history and physical examination was performed. 2109: Morphine sulfate 6 mg IV, Zofran 4 mg IV 2242: Morphine sulfate 4 mg IV 0: Upon reevaluation, the patient is feeling better and resting comfortably. I discussed my findings with the patient and he understands and agrees with the treatment plan. Based on the patients age, coexisting illnesses, exam and lab findings the decision to treat as an outpatient was made. The patient remained stable while under my care. The patient appeared well at the time of discharge. Medical Decision Differential diagnoses includes but is not limited to acute coronary syndrome, myocardial infarction, pericarditis, pulmonary embolus, aortic dissection, pneumonia, pneumothorax, musculoskeletal, shingles, esophageal. Patient is a 29-year-old male that presents to ER for severe right-sided chest pain which started one day following lifting a ladder. Pain is worsened with any kind twisting turning or palpation. No exertional symptoms. No arm pain or jaw pain. This started while moving a ladder. INR was therapeutic at 2.2. CBC unremarkable. Chest x-ray shows no fractures. IV was established was given 2 doses of IV narcotics. He felt slightly better. He was discharged follow-up with PCP with musculoskeletal rib Pain/rib contusion. Discussed with Pt concerning signs and symptoms to watch out for. Pt was instructed to follow up with their PCP and discussed with the patient their option to return to the ED at anytime for persistent or worsening symptoms. The appropriate anticipatory guidance and out-patient management, including indications for return to the emergency department, were explained at length to the patient and understood. [place] Drug Monitoring Program Search Results: patient reviewed within database Drug Monitoring Findings: Multiple narcotic prescriptions. Medication Reconcilliation Current Medication List: was personally reviewed by me Blood Pressure Screening Patient's blood pressure: Elevated blood pressure Blood pressure disposition: Elevated BP felt to be situational Impression Primary Impression: Rib pain on right side Scribe Attestation The scribe's documentation has been prepared under my direction and personally reviewed by me in its entirety. I confirm that the note above accurately reflects all work, treatment, procedures, and medical decision making performed by me. Departure Information Dispostion Home / Self-Care Referrals Alex Dumas M.D. (MEDICAL) (PCP) Forms HOME CARE DOCUMENTATION FORM, IMPORTANT VISIT INFORMATION, WORK / SCHOOL INSTRUCTIONS Patient Instructions ED Contusion Rib, My [facility] Additional Instructions Please follow up with your primary care doctor or if you are a student, [facility] with in the next 24 hours. Any worsening of your symptoms, please return to the ED immediately. This includes any fevers greater than 100.4, worsening pain, chest pain, shortness breath, persistent nausea, vomiting, unable to eat or drink, or any other concerning signs or symptoms from your standpoint. You were given medications during this visit that will inhibit your ability to drive, operate machinery and work. Please do NOT drive, operate machinery, drink alcohol or work for the next 12hrs.
== END 2017-04-29 23:20 | disposition home or self-care (01) ==
LOC: C.EDB 20:22 → C.EDC 23:20
DX: R07.81 Pleurodynia (principal); Z82.49 Family history of ischemic heart disease and other diseases of the circulatory system; Z82.3 Family history of stroke; F17.200 Nicotine dependence, unspecified, uncomplicated; Z79.01 Long term (current) use of anticoagulants

== ENCOUNTER → 2017-07-26 | Day surgery (SDC) | payer OTHER ==
[2017-07-24 14:18] VITALS: Ht 175.3 cm; Wt 106.8 kg
[~2017-07-26] VITALS: Ht 175.3 cm; Wt 106.8 kg
[~2017-07-26] MED LIST changes: +ATROPINE SULFATE 0.1 MG/ML 5ML SYR IV PRN; +CEFAZOLIN 2000MG IV PUSH 10 ML IV SCH; +ENOX100I SQ; +EpHEDrine SULFATE INJ 50 MG/ML AMP IV PRN; +FENTANYL CITRATE INJ 50 MCG/1 ML 2 ML VIAL IV PRN; +FENTANYL CITRATE INJ 50 MCG/1 ML 2 ML VIAL ONE; +GABA1CAP4 PO; -IBUP-1050 PO; +LACTATED RINGER'S 1000ML 1,000 ML IV SCH; +LACTATED RINGER'S 1000ML 500 ML IV SCH; +LIDOCAINE HCL 2% 2 ML VIAL (20MG/ML) ONE; +LIDOCAINE MPF 1% INJ 30 ML SDV (L&D) INFIL ONE; +LOSA100T65 PO; +MIDAZOLAM HCL 1 MG/ML 2ML VIAL ONE; +ONDANSETRON INJ 2 MG/ML 2 ML VIAL IV PRN; +OXYC-57 PO; +OXYC-609 PO; +OXYCODONE/ACETAMINOPHEN 5-325 TAB ONE; +OXYCODONE/ACETAMINOPHEN 5-325 TAB PO PRN; +PATIENT'S HEIGHT AND/OR WEIGHT NEEDED SCH; +PROPOFOL IV EMULSION 10 MG/ML 20 ML VIAL IV ONE; +SODIUM CHLORIDE 0.9% 1000ML 1,000 ML IV SCH; +WARF-246 PO; +WARF10TA4 PO
[2017-07-26 11:25] LABS: PARTIAL THROMBOPLASTIN RATIO 1.1
--- NOTE | 2017-07-26 14:18 | [facility] Post Operative Brief Note ---
Immediate Operative Summary Operative Date Jul 26, 2017. 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 Baker Tool Rental Technician Surgeon(s) Kizzy Biggs PA-C Estimated Blood Loss 5ml Findings as above Specimens Patient does not want their explanted hardware Complication(s) None Disposition Recovery Room / PACU
[2017-07-26 14:23] VITALS: TEMP 36.4
--- NOTE | 2017-07-26 14:25 | OPERATIVE REPORT ---
DATE OF OPERATION: 07/26/2017 PREOPERATIVE DIAGNOSIS: Painful hardware of the right ankle. POSTOPERATIVE DIAGNOSIS: Same. PROCEDURE: Removal of hardware of the distal fibula. SURGEON: Dr. Vitor Baker. RANGE FEEDER: Victor M Biggs PA-C, whose assistance was necessary for retraction and closure. ANESTHESIA: Local with sedation. COMPLICATIONS: None. CONDITION: Stable to PACU. INDICATIONS: Trever is a 37-year-old male who I did an open reduction and internal fixation of his right ankle over a year ago. Unfortunately, he has been having pain in the area of the hardware and elected to proceed with hardware removal. DESCRIPTION OF PROCEDURE: On 07/26/2017, he arrived at [facility] for the above procedure. He was seen in the preoperative holding area and the operative extremity was identified and signed. He was given preoperative antibiotics and taken back to the operating room, laid on the table in supine position and put under basic sedation. The right ankle was then prepped and draped in sterile fashion. Time-out was done and the patient's operative extremity was properly identified. The surgical site was anesthetized with 20 mL of lidocaine. The previous incision was opened back up. Dissection was taken down directly to the hardware. All the screws were easily removed and the plate was then removed. The wound was then irrigated and closed with 3-0 Vicryl and jassi. He was placed in a soft dressing and taken to the postanesthesia care unit in stable condition. He tolerated the procedure well. I attest to the content of the Intraoperative Record and any orders documented therein. Any exception s are noted below.
--- NOTE | 2017-07-26 14:26 | Discharge Instructions-SurgCtr ---
Discharge Instructions Date of Service Jul 26, 2017. Visit Reason for Visit: Mechanical Complication Of Interanl Orthopedic Dev Discharge Discharge Diagnosis / Problem: SAME ABOVE Discharge Goals Goal(s): Decrease discomfort, Improve function Activity Recommendations Activity Limitations: as noted below Lifting Limitations: none Shower/Bathe: may shower/bathe in 3 days Anesthesia . Post Anesthesia Instructions: If you have had General Anesthesia or IV Sedation: * Do not drive today. * Resume driving when surgeon permits. * Do not make important decisions or sign legal documents today. * Call surgeon for: 1. Temperature elevations greater than 101 degrees F. 2. Uncontrollable pain. 3. Excessive bleeding. 4. Persistent nausea and vomiting. 5. Medication intolerance (nausea, vomiting or rash). * For nausea and vomiting use only clear liquids such as: tea, soda, bouillon until nausea subsides, then gradually increase diet as tolerated. * If you have any concerns or questions, call your surgeon's office. If physician is unavailable and it is an emergency, call 911 or go to the nearest emergency room. . Instructions / Follow-Up Instructions / Follow-Up MEDICATIONS: * Resume previous medications unless instructed otherwise by your surgeon. * Always take pain medication on a full stomach or with food to avoid upset stomach. * Do not drink alcohol or drive while taking narcotics. * Ibuprofen or Tylenol may be taken if narcotic not needed. SPECIAL CARE INSTRUCTIONS: __ None _X_ Keep extremity elevated and iced x 48 hours; apply ice 20-30 minutes 8-10 times/day. May remove at night. __ Crutches __ May discard when able __ Brace/Post-op shoe __ 24 hrs/day __ Remove at night _X_ Dressing __ Maintain until seen in office, may shower with plastic over site _X_ Remove dressings in 72 hours and then may shower. MAY SHOWER SOONER IF COVERED WITH PLASTIC BAG _X_ Cover incisions with band-aids after showering __ Do not remove steri-strips Call physician if chills or temperature rises above 102 degrees or pain unrelieved by prescribed pain medications. Office [phone] Diet Recommendations Home Diet: no limitations Fluid Restriction: None Procedures Procedures Performed: Right Ankle Removal of Hardware Pending Studies Studies pending at discharge: no Work Instructions Return To Work: after follow-up Medical Emergencies . Who to Call and When: Medical Emergencies: If at any time you feel your situation is an emergency, please call 911 immediately. . Non-Emergent Contact Non-Emergency issues call your: Primary Care Provider Call Non-Emergent contact if: you have a fever, temperature is above 101.5 . . "Provider Documentation" section prepared by Ken Biggs. .
[2017-07-26 15:16] VITALS: BP 152/103; PULSE 77; O2SAT 96
--- NOTE | 2017-07-26 15:28 | Anesthesia Progress Nt - [facility] ---
Anesthesia Post Op Note Date & Time Jul 26, 2017 at 15:28 Vital Signs Pain Intensity: 8 Vital Signs Past 12 Hours Date Time Temp Pulse Resp B/P (MAP) Pulse Ox O2 Delivery O2 Flow Rate FiO2 07/26/17 15:16 77 16 152/103 (119) 96 Room Air 07/26/17 14:23 36.4 79 16 137/90 (106) 95 Room Air 07/26/17 11:00 36.8 83 18 157/108 (124) 95 Room Air Notes Mental Status: alert / awake / arousable, participated in evaluation Pt Amnestic to Procedure: Yes Nausea / Vomiting: adequately controlled Pain: adequately controlled Airway Patency, RR, SpO2: stable & adequate BP & HR: stable & adequate Hydration State: stable & adequate Anesthetic Complications: no major complications apparent
== END | disposition home or self-care (01) ==
LOC: X.SURG 10:39
PROVIDERS: ATTEND Orthopaedic Surgery
DX: T84.298A Other mechanical complication of internal fixation device of other bones, initial encounter (principal); Y83.1 Surgical operation with implant of artificial internal device as the cause of abnormal reaction of the patient, or of later complication, without mention of misadventure at the time of the procedure; I10 Essential (primary) hypertension; F17.200 Nicotine dependence, unspecified, uncomplicated; Z90.49 Acquired absence of other specified parts of digestive tract; Z86.718 Personal history of other venous thrombosis and embolism; Z83.3 Family history of diabetes mellitus

== ENCOUNTER 2017-12-25 20:12 | Emergency (ER) | payer OTHER ==
[~2017-12-25] VITALS: Ht 175.3 cm; Wt 115.0 kg
[~2017-12-25 20:12] MED LIST changes: -ATROPINE SULFATE 0.1 MG/ML 5ML SYR IV PRN; -CEFAZOLIN 2000MG IV PUSH 10 ML IV SCH; -EpHEDrine SULFATE INJ 50 MG/ML AMP IV PRN; -FENTANYL CITRATE INJ 50 MCG/1 ML 2 ML VIAL IV PRN; -FENTANYL CITRATE INJ 50 MCG/1 ML 2 ML VIAL ONE; +GABA-1219 PO; -GABA1CAP4 PO; -LACTATED RINGER'S 1000ML 1,000 ML IV SCH; -LACTATED RINGER'S 1000ML 500 ML IV SCH; -LIDOCAINE HCL 2% 2 ML VIAL (20MG/ML) ONE; -LIDOCAINE MPF 1% INJ 30 ML SDV (L&D) INFIL ONE; -LOSA100T65 PO; -MIDAZOLAM HCL 1 MG/ML 2ML VIAL ONE; -ONDANSETRON INJ 2 MG/ML 2 ML VIAL IV PRN; -OXYC-609 PO; -OXYCODONE/ACETAMINOPHEN 5-325 TAB ONE; -OXYCODONE/ACETAMINOPHEN 5-325 TAB PO PRN; -PATIENT'S HEIGHT AND/OR WEIGHT NEEDED SCH; -PROPOFOL IV EMULSION 10 MG/ML 20 ML VIAL IV ONE; -SODIUM CHLORIDE 0.9% 1000ML 1,000 ML IV SCH
[2017-12-25 20:21] VITALS: Ht 175.3 cm; Wt 115.0 kg
[2017-12-25] MEDS ORDERED: KETOROLAC TROMETHAMINE 30 MG/ML VIAL IV STA (20:33)
[2017-12-25] MEDS ORDERED: SODIUM CHLORIDE 0.9% 500ML 500 ML IV STA (20:33)
[2017-12-25] MEDS ORDERED: OPTIRAY 320 IV PRN (20:45)
[2017-12-25 21:07] LABS: BASO % 0.7 %; BASO ABS # 0.06 K/uL (0-0.2); EOS % 4.9 %; HEMATOCRIT 45.6 % (42-52); HEMOGLOBIN 16.1 g/dL (14.0-18.0); IG# 0.01 K/uL (0.00-0.02); LYMPH % 28.2 %; MEAN CELL VOLUME 91.8 fL (80-100); MEAN CORPUSCULAR HEMOGLOBIN 32.4 pg (25-34); MEAN CORPUSCULAR HGB CONC 35.3 g/dl (32-36); MONO % 8.7 %; MONO ABS # 0.71 K/uL (0.11-0.59); NEUT % 57.4 %; NEUT ABS # 4.69 K/uL (1.4-6.5); PLATELET COUNT 226 K/uL (130-400); RED CELL DISTRIBUTION WIDTH CV 13.2 % (11.5-14.5); RED CELL DISTRIBUTION WIDTH SD 44.1 fL (36.4-46.3); WHITE BLOOD COUNT 8.17 K/uL (4.8-10.8)
[2017-12-25] MEDS ORDERED: PENICILLIN V POTASSIUM 250 MG TAB PO ONE (21:15)
[2017-12-25] MEDS ORDERED: OXYC-609 PO (21:18)
[2017-12-25] MEDS ORDERED: LOSA100T65 PO (21:18)
[2017-12-25 21:32] LABS: ALBUMIN 3.8 gm/dl (3.4-5.0); CALCIUM 8.8 mg/dl (8.5-10.1); CREATININE 0.79 mg/dl (0.60-1.40)
[2017-12-25] MEDS ORDERED: MELO7.5T5 PO (21:32)
[2017-12-25] MEDS ORDERED: IBUP-1050 PO (21:32)
[2017-12-25 21:35] LABS: TOTAL PROTEIN 7.8 gm/dl (6.4-8.2)
[2017-12-25] MEDS ORDERED: OXYCODONE/ACETAMINOPHEN 5-325 TAB PO ONE (22:00)
--- NOTE | 2017-12-25 22:23 | EMERGENCY ROOM VISIT NOTE ---
History Report prepared by Misty: Sherin Encarnacion Under the Supervision of: Dr. Laina Franz D.O. First contact with patient: 20:26 Chief Complaint: DENTAL PAIN Stated Complaint: TOOTHACHE - ABSCESSED TOOTH - SWOLLEN History of Present Illness The patient is a 37 year old male who presents to the Emergency Room with complaints of worsening dental pain starting this morning. He woke up with some swelling and pain to his face which has worsened throughout the day. He describes the pain as throbbing. He tried taking ibuprofen to no significant relief. He has a chipped tooth which he thinks is causing the pain and swelling. He has had trouble with his teeth before. He felt hot today, but does not think he had a fever. He has not had any blood or drainage around his teeth. He denies any headache, vomiting, diarrhea, SOB, chest pain, or runny nose. 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 He is no longer on Coumadin. He has a history of hypertension. Patient states he takes losartan every morning for his blood pressure. States he can feel when it wears off in the evenings but then it is usually time for bed shortly after that. Patient states it is frequently elevated when he has a rechecked in the office otherwise. Patient denies dizziness, headache, numbness or tingling, lower extremity swelling, vision changes. Source of History: patient Onset: this morning Position: teeth Quality: other (throbbing) Timing: worsening Associated Symptoms: No fevers, No headache, No chest pain, No SOB, No vomiting, No diarrhea Note: Pt reports facial swelling. Review of Systems See HPI for pertinent positives & negatives. A total of 10 systems reviewed and were otherwise negative. Past Medical & Surgical Medical Problems: (1) Migraine (2) Sinusitis Surgical Problems: (1) No history of previous surgery Family History FH: VT (myocardial infarction) FH: cancer Hypertension Stroke Social History Smoking Status: Current Every Day Smoker Alcohol Use: none Drug Use: none Marital Status: Housing Status: lives with family Occupation Status: employed Current/Historical Medications Scheduled Ibuprofen (Advil), 400 MG PO PRN UD Losartan Potassium (Cozaar), 100 MG PO QAM Meloxicam (Mobic), 7.5 MG PO DAILY Penicillin V Potassium (Veetids), 500 MG PO QID Scheduled PRN Gabapentin (Gabapentin), 300 MG PO TID PRN for Pain Oxycodone HCl (Oxycodone HCl), 5-10 MG PO HS PRN for Pain Allergies Coded Allergies: No Known Allergies (Verified , 07/26/17) Physical Exam Vital Signs Date Time Temp Pulse Resp B/P (MAP) Pulse Ox O2 Delivery O2 Flow Rate FiO2 12/25/17 23:34 74 18 172/113 95 Room Air 12/25/17 23:11 74 18 186/119 96 Room Air 12/25/17 22:11 79 20 191/124 97 Room Air 12/25/17 20:21 36.7 85 20 189/121 96 Room Air Physical Exam GENERAL: alert, well appearing, well nourished, no distress, non-toxic EYE EXAM: normal conjunctiva, PERRL and EOM's grossly intact OROPHARYNX: Right facial swelling. Poor dentition. Multiple dental caries, no obvious area of drainage or bleeding. No area of fluctuance around the gums. Tenderness to percussion in the left upper teeth 10 and 12. No mucocutaneous lesions. Uvula midline. No exudate, no tonsillar hypertrophy, no trismus. NECK: supple, no nuchal rigidity, no adenopathy, non-tender LUNGS: Clear to auscultation. Normal chest wall mechanics HEART: no murmurs, S1 normal and S2 normal ABDOMEN: abdomen soft, non-tender, normo-active bowel sounds, no masses, no rebound or guarding. BACK: Back is symmetrical on inspection and there is no deformity, no midline tenderness, no CVA tenderness. SKIN: no rashes and no bruising UPPER EXTREMITIES: upper extremities are grossly normal. LOWER EXTREMITIES: No pitting edema. NEURO EXAM: Normal sensorium, cranial nerves II-XII grossly intact, normal speech, no gross weakness of arms, no gross weakness of legs. Medical Decision & Procedures ER Provider Diagnostic Interpretation: [~ rep ct add3]] FACIAL-MAXILLOFACIAL WITH HISTORY: 37 years-old Male RIGHT FACIAL SWELLING acute right-sided facial pain and swelling COMPARISON: CT maxillofacial to October 04, 2008 TECHNIQUE: Multiple axial CT images of the face was obtained following the intravenous administration of 95 mL Optiray 320 IV contrast. A dose lowering technique was used consistent with the principals of ANA. FINDINGS: There is mild subcutaneous edema about the right cheek, maxillary and mandibular tissues without drainable fluid collection or opaque foreign body. There are multiple dental caries seen bilaterally with periapical cyst and cortical erosion noted involving the right maxillary canine, image 289 series 3. Large periapical cyst involves the left lateral maxillary incisor 7 mm. Imaged intracranial structures and soft tissues are otherwise unremarkable. The orbits are symmetric and within normal limits. Mild mucoperiosteal thickening about the paranasal sinuses with bubbly secretions about the left maxillary sinus. Mastoid air cells and middle ear cavities are clear. IMPRESSION: 1. Mild subcutaneous edema about the right cheek, maxillary and mandibular tissues without drainable fluid collection or opaque foreign body. These findings suggest cellulitis/phlegmonous change from odontogenic origin. Multiple dental caries and periapical cysts are present with periapical cysts and cortical erosion noted involving the right maxillary canine. Dental workup is recommended. 2. Mild paranasal sinus disease. The above report was generated using voice recognition software. It may contain grammatical, syntax or spelling errors. Electronically signed by: Damian Bellamy M.D. 12/25/2017 10:28 PM Dictated Date/Time: 12/25/2017 10:20 PM Laboratory Results 12/25/17 20:50 Red Blood Count 4.97, Mean Corpuscular Volume 91.8, Mean Corpuscular Hemoglobin 32.4, Mean Corpuscular Hemoglobin Concent 35.3, Mean Platelet Volume 10.0, Neutrophils (%) (Auto) 57.4, Lymphocytes (%) (Auto) 28.2, Monocytes (%) (Auto) 8.7, Eosinophils (%) (Auto) 4.9, Basophils (%) (Auto) 0.7, Neutrophils # (Auto) 4.69, Lymphocytes # (Auto) 2.30, Monocytes # (Auto) 0.71, Eosinophils # (Auto) 0.40, Basophils # (Auto) 0.06 12/25/17 20:50 Test 12/25/17 20:50 White Blood Count 8.17 K/uL (4.8-10.8) Red Blood Count 4.97 M/uL (4.7-6.1) Hemoglobin 16.1 g/dL (14.0-18.0) Hematocrit 45.6 % (42-52) Mean Corpuscular Volume 91.8 fL (80-100) Mean Corpuscular Hemoglobin 32.4 pg (25-34) Mean Corpuscular Hemoglobin Concent 35.3 g/dl (32-36) Platelet Count 226 K/uL (130-400) Mean Platelet Volume 10.0 fL (7.4-10.4) Neutrophils (%) (Auto) 57.4 % Lymphocytes (%) (Auto) 28.2 % Monocytes (%) (Auto) 8.7 % Eosinophils (%) (Auto) 4.9 % Basophils (%) (Auto) 0.7 % Neutrophils # (Auto) 4.69 K/uL (1.4-6.5) Lymphocytes # (Auto) 2.30 K/uL (1.2-3.4) Monocytes # (Auto) 0.71 K/uL (0.11-0.59) Eosinophils # (Auto) 0.40 K/uL (0-0.5) Basophils # (Auto) 0.06 K/uL (0-0.2) RDW Standard Deviation 44.1 fL (36.4-46.3) RDW Coefficient of Variation 13.2 % (11.5-14.5) Immature Granulocyte % (Auto) 0.1 % Immature Granulocyte # (Auto) 0.01 K/uL (0.00-0.02) Anion Gap 4.0 mmol/L (3-11) Est Creatinine Clear Calc Drug Dose 158.6 ml/min Estimated GFR () 132.0 Estimated GFR (Non- 113.9 BUN/Creatinine Ratio 8.4 (10-20) Calcium Level 8.8 mg/dl (8.5-10.1) Total Bilirubin 0.3 mg/dl (0.2-1) Aspartate Amino Transf (AST/SGOT) 44 U/L (15-37) Alanine Aminotransferase (ALT/SGPT) 63 U/L (12-78) Alkaline Phosphatase 63 U/L (45-117) Total Protein 7.8 gm/dl (6.4-8.2) Albumin 3.8 gm/dl (3.4-5.0) Globulin 4.0 gm/dl (2.5-4.0) Albumin/Globulin Ratio 1.0 (0.9-2) Laboratory results per my review. Medications Administered Medications (Trade) Dose Ordered Sig/Piyush Route Start Time Stop Time Status Last Admin Dose Admin Sodium Chloride 500 ml @ 999 mls/hr Q31M STAT IV 12/25/17 20:33 12/25/17 21:03 DC 12/25/17 20:56 999 MLS/HR Ketorolac Tromethamine (Toradol Inj) 30 mg NOW STAT IV 12/25/17 20:33 12/25/17 20:34 DC 12/25/17 20:56 30 MG Penicillin V Potassium (Veetids Tab) 500 mg NOW ONCE PO 12/25/17 21:15 12/25/17 21:16 DC 12/25/17 21:21 500 MG Oxycodone/ Acetaminophen (Percocet 5-325mg Tab) 2 tab NOW ONCE PO 12/25/17 22:00 12/25/17 22:01 DC 12/25/17 22:09 2 TAB Amlodipine Besylate (Norvasc Tab) 5 mg NOW ONCE PO 12/25/17 23:00 12/25/17 23:01 DC 12/25/17 23:13 5 MG ECG Per My Interpretation Indication: other Rate (beats per minute): 82 Rhythm: sinus rhythm Findings: T-wave inversion (lead 3), no ectopy, other (normal axis, normal intervals, no other acute ischemic change) ED Course 2026: The patient was evaluated in room C1B. A complete history and physical exam was performed. 2032: Toradol Inj 30 mg IV, Sodium Chloride 500 ml @ 999 mls/hr IV. 2114: Veetids Tab 500 mg PO. 2199: Percocet 5-325 mg tab 2 tab PO. Medical Decision Differential diagnosis: dental caries, dental abscess, osteomyelitis, facial cellulitis, parotitis, trauma, deep space infection, SVC syndrome, Lemierre's syndrome. No evidence of osteomyelitis, patient with known dental caries and chronic poor dentition. No other evidence of occult infectious etiology. I do not suspect deep space infection. I do not suspect any intracranial infection or other [employer] process. I do not suspect hypertensive emergency, or urgency. Patient with chronic long-standing hypertension and I feel is more likely elevated due to pain and anxiety regarding his condition. No evidence of bacteremia/sepsis, no evidence of other facial cellulitis, parotitis, or Lemierre's syndrome. I do not suspect any occult vascular etiology or thromboembolic disease. Discussed with patient close follow-up with dentist, use of antibiotics, use of his other pain medication which he artery has at home, symptoms to watch and return for, he verbalized understanding was agreeable with plan. Discussed with patient recheck of blood pressure with family doctor also and possible need for adjustment of his usual blood pressure medications or additional medication. [place] Drug Monitoring Program Search Results: patient reviewed within database Drug Monitoring Findings: Patient has a prescription for oxycodone 5 mg tab filled every month by Trever Dumas. Medication Reconcilliation Current Medication List: was personally reviewed by me Blood Pressure Screening Patient's blood pressure: Elevated blood pressure Blood pressure disposition: Referred to PCP Impression Primary Impression: Dental caries Additional Impressions: Dentalgia Hypertension Scribe Attestation The scribe's documentation has been prepared under my direction and personally reviewed by me in its entirety. I confirm that the note above accurately reflects all work, treatment, procedures, and medical decision making performed by me. Departure Information Dispostion Home / Self-Care Prescriptions Penicillin V Potassium (Veetids) 500 Mg Tab 500 MG PO QID, #40 TAB Prov: Laina Franz, 12/25/17 Referrals Alex Dumas M.D. (MEDICAL) (PCP) Patient Instructions My [facility] Additional Instructions Please take the antibiotics as prescribed until completed. Please consider using a probiotic while you are taking antibiotics. Please drink plenty of water. Please call and make an appointment with your dentist for further evaluation. If you develop worsening pain, increased swelling of the face, develop fevers or chills, nausea vomiting, dizziness, trouble breathing, bleeding or drainage from around the tooth, you have any other new concerns, please return the emergency room. Please also have your family doctor recheck your blood pressure as it was elevated tonight. Problem Qualifiers Additional Impressions: Hypertension Hypertension type: essential hypertension Qualified Codes: I10 - Essential ( primary) hypertension
--- NOTE | 2017-12-25 22:29 | DIAGNOSTIC IMAGING REPORT ---
FACIAL-MAXILLOFACIAL WITH HISTORY: 37 years-old Male RIGHT FACIAL SWELLING acute right-sided facial pain and swelling COMPARISON: CT maxillofacial to October 04, 2008 TECHNIQUE: Multiple axial CT images of the face was obtained following the intravenous administration of 95 mL Optiray 320 IV contrast. A dose lowering technique was used consistent with the principals of ANA. FINDINGS: There is mild subcutaneous edema about the right cheek, maxillary and mandibular tissues without drainable fluid collection or opaque foreign body. There are multiple dental caries seen bilaterally with periapical cyst and cortical erosion noted involving the right maxillary canine, image 289 series 3. Large periapical cyst involves the left lateral maxillary incisor 7 mm. Imaged intracranial structures and soft tissues are otherwise unremarkable. The orbits are symmetric and within normal limits. Mild mucoperiosteal thickening about the paranasal sinuses with bubbly secretions about the left maxillary sinus. Mastoid air cells and middle ear cavities are clear. IMPRESSION: 1. Mild subcutaneous edema about the right cheek, maxillary and mandibular tissues without drainable fluid collection or opaque foreign body. These findings suggest cellulitis/phlegmonous change from odontogenic origin. Multiple dental caries and periapical cysts are present with periapical cysts and cortical erosion noted involving the right maxillary canine. Dental workup is recommended. 2. Mild paranasal sinus disease. The above report was generated using voice recognition software. It may contain grammatical, syntax or spelling errors. Electronically signed by: Damian Bellamy M.D. 12/25/2017 10:28 PM Dictated Date/Time: 12/25/2017 10:20 PM
[2017-12-25] MEDS ORDERED: PENI-82 PO (22:48)
[2017-12-25] MEDS ORDERED: AMLODIPINE BESYLATE 5 MG TAB PO ONE (23:00)
[2017-12-25] MEDS ORDERED: PENICILLIN HOME PACK 250MG (4)BTL PO ONE (23:30)
[2017-12-26 00:11] VITALS: BP 172/109; PULSE 82; O2SAT 96
== END 2017-12-26 00:11 | disposition home or self-care (01) ==
LOC: C.EDB 20:13 → C.EDC 12-26 00:11
DX: K02.9 Dental caries, unspecified (principal); K08.89 Other specified disorders of teeth and supporting structures; I10 Essential (primary) hypertension; Z79.899 Other long term (current) drug therapy; F17.210 Nicotine dependence, cigarettes, uncomplicated